=== PATIENT | male | born 1955 ===

== ENCOUNTER 2018-05-08 20:19 | Inpatient (IN) | payer MEDICAID, OTHER ==
--- NOTE | 2018-05-08 21:36 | ED PDOC ---
Arrival/HPI - General Time Seen by Provider: 05/08/18 21:16 Historian: Superintendent Recreation - History of Present Illness Narrative History of Present Illness (Text): 05/08/18 21:37 62 M with no significant past medical history presents with cc of pain in lower chest wall and epigastric area x2hrs radiating to the upper back and neck. A media services specialist was used with patient's permission. Per electrician outside, patient cc presented s/p a meal consisting of cooked shrimp, tomatoes and cucumbers earlier today. Patient attempted to vomit the food out but failed to. Patient also reports feeling nausea. Patient denies any fevers, chills, headache, dizziness, shortness of breath, dyspnea on exertion, cough, diarrhea, or any other complaint. Time/Duration: 1-3 hours Symptom Onset: Sudden Symptom Course: Unchanged Activities at Onset: Light Context: Home Past Medical History - Provider Review Nursing Documentation Reviewed: Yes Family/Social History - Physician Review Nursing Documentation Reviewed: Yes Family/Social History: No Known Family HX Allergies/Home Meds Allergies/Adverse Reactions: Allergies No Known Allergies Allergy (Verified 05/09/18 12:27) Home Medications: Home Meds Medication Instructions Recorded Confirmed Digoxin [Lanoxin] 125 mcg PO DAILY 05/09/18 05/09/18 Furosemide [Lasix] 20 mg PO DAILY 05/09/18 05/09/18 Review of Systems - Physician Review All systems were reviewed & negative as marked: Yes - Review of Systems Constitutional: Normal Eyes: Normal ENT: Normal Respiratory: Normal Cardiovascular: Chest Pain Gastrointestinal: Abdominal Pain, Nausea. absent: Diarrhea, Vomiting Genitourinary Male: Normal Musculoskeletal: Back Pain, Neck Pain Skin: Normal Neurological: Normal Endocrine: Normal Hemo/Lymphatic: Normal Psychiatric: Normal Physical Exam - Physical Exam Narrative Physical Exam (Text): 05/08/18 21:47 Gen: VS reviewed, alert, well developed, well nourished, nontoxic, mild distress Eye: EOMI, PERRL Neck: no JVD, supple, no adenopathy CV: regular rate, regular rhythm, Systolic ejection murmur Pulm: no distress, clear to auscultation, no wheeze, no rhonchi, breath sounds equal, no rales Abd: soft, mild epigastric tenderness, no guarding, no rebound, no rigidity Ext: no edema Skin: good color, no rash, no cyanosis Psych: responds appropriately to questions, normal affect Neuro: oriented x3, CN2-12 intact grossly, motor intact, sensation intact Vital Signs Reviewed: Yes Vital Signs Temp Pulse Resp BP Pulse Ox 05/08/18 20:25 98.4 F 85 16 146/92 H 99 Temperature: Afebrile Blood Pressure: Normal Pulse: Regular Respiratory Rate: Normal Appearance: Positive for: Well-Appearing, Non-Toxic, Comfortable Pain Distress: Mild Mental Status: Positive for: Alert and Oriented X 3 Medical Decision Making ED Course and Treatment: 05/08/18 22:13 62 M with presents with cc of pain in lower chest wall and epigastric area radiating to the upper back and neck. Symptoms above and below diaphragm. -- CTA to rule out aortic dissection Progress Notes: 05/09/18 01:[address] lockett to the hospitalist service. patient to be admitted for chest pain rule out acs. patient also noted to have a coronary calcification and other incidental Ct findings. medical support specialist is also aware of admit. the gallbladder is distended but LFT's are wnl. case discussed with surgical technology instructor and it is agreed that routine Us of the GB can be deferred until the AM. routine consult to dr. keith. 05/09/18 01:53 - RAD Interpretation Narrative RAD Interpretations (Text): 05/09/18 01:30 CTA Chest, Abdomen and Pelvis with Intravenous Contrast: 1. The thoracic and abdominal aorta demonstrate no evidence for aneurysm or dissection. 2. There is mild mediastinal lymphadenopathy, with the subcarinal node measuring 11 mm in short axis dimension on series 3, image 55. 3. The heart is moderately enlarged. There is coronary artery calcification. 4. Mild interlobular septal thickening in the apices. This is nonspecific can be seen in pulmonary edema. Please correlate clinically. Scattered groundglass opacity in the lungs nonspecific but can be seen in pulmonary edema, vascular or small airways disease. 5. The gallbladder is distended measuring at least 9.0 x 3.5 cm. Please correlate clinically and if indicated this could be further evaluated with right upper quadrant sonogram or HIDA scan. 6. Additional and incidental findings as described above. Radiology Orders: 05/08/18 21:32 ANGIOGRAPHY DISECTION PROTOCOL [CT] Stat Tax Commissioner: Radiologist - EKG Interpretation EKG Interpretation (Text): 05/08/18 20:27 NSR @ 86 bpm, nml qrs, nml axis, no acute sttw abn. Interpreted by ED Physician: Yes Type: 12 lead EKG - PA / FRAUD PREVENTION ANALYST / Resident Statement MD/DO has reviewed & agrees with the documentation as recorded. - Scribe Statement The provider has reviewed the documentation as recorded by the Leopoldoibjohnathan Ayers All medical record entries made by the Leopoldoibjohnathan were at my direction and personally dictated by me. I have reviewed the chart and agree that the record accurately reflects my personal performance of the history, physical exam, medical decision making, and the department course for this patient. I have also personally directed, reviewed, and agree with the discharge instructions and disposition. Disposition/Present on Arrival - Present on Arrival Any Indicators Present on Arrival: No - Disposition Have Diagnosis and Disposition been Completed?: Yes Diagnosis: Chest pain, Gallbladder dilatation Disposition: HOSPITALIZED Disposition Time: 01:54 Patient Plan: Observation Patient Problems: Current Active Problems Problem Status Onset Chest pain Acute Gallbladder dilatation Acute Condition: STABLE
[2018-05-08 21:50] LABS: BASO # 0.04 K/mm3 (0.0-2.0); BASO % 0.5 % (0.0-3.0); EOS # 0.1 (0.0-0.7); EOS % 0.6 % (1.5-5.0); LYMPH # 1.2 (1.2-3.4); LYMPH % 14.5 % (22.0-35.0); MEAN CELL VOLUME 78.8 fl (80.0-105.0); MEAN CORPUSCULAR HEMOGLOBIN 25.9 pg (25.0-35.0); MEAN CORPUSCULAR HGB CONC 32.9 g/dl (31.0-37.0); MEAN PLATELET VOLUME 9.6 fl (7.0-11.0); MONO # 0.3 (0.1-0.6); MONO % 3.2 % (1.0-6.0); RBC 4.24 10^6/uL (3.5-6.1); RED CELL DISTRIBUTION WIDTH 18.2 % (11.5-14.5); WHITE BLOOD COUNT 8.2 10^3/uL (4.5-11.0)
[2018-05-08 21:59] LABS: INR 1.08; PARTIAL THROMBOPLASTIN TIME 30.1 Seconds (26.9-38.3)
[2018-05-08 22:08] LABS: ALB/GLOB RATIO 1.2 (1.1-1.8); ALBUMIN 4.2 g/dL (3.0-4.8); ALT/SGPT 36 U/L (7-56); AST/SGOT 45 U/L (17-59); BLOOD UREA NITROGEN 15 mg/dL (7-21); GFR NON-AFRICAN AMERICAN > 60; LIPASE 240 U/L (23-300)
[2018-05-08 22:20] LABS: TROPONIN I 0.02 ng/mL
--- NOTE | 2018-05-09 02:03 | CP.PCM.HP ---
<Edith Desai - Last Filed: 05/09/18 02:58> History of Present Illness - History of Present Illness History of Present Illness: Resident History & Physical for Hospitalist Service Patient is a 62 year old Palestinian speaking male with no significant past medical history presenting with chief complaint of abdominal pain that began earlier this evening. Pain is intermittent and sharp with radiation to the back. Patient denies eating anything unusual and states this has never happened to him before. Patient also admits to nausea but no vomiting. Denies fevers, chills, chest pain, shortness of breath, diarrhea, dysuria. PMH: none PSH: none SHx: denies tobacco or illicit drug use, occasional alcohol FHx: noncontributory Allergies: NKDA Present on Admission - Present on Admission Any Indicators Present on Admission: No Review of Systems - Review of Systems All systems: reviewed and no additional remarkable complaints except (as stated in HPI) Past Patient History - Past Social History Smoking Status: Never Smoked - PSYCHIATRIC Hx Substance Use: No - SURGICAL HISTORY Hx Surgeries: No - ANESTHESIA Hx Anesthesia: No Hx Anesthesia Reactions: No Hx Malignant Hyperthermia: No Meds Allergies/Adverse Reactions: Allergies Allergy/AdvReac Type Severity Reaction Status Date / Time No Known Allergies Allergy Verified 05/09/18 12:27 Physical Exam - Constitutional Appears: Non-toxic, No Acute Distress - Head Exam Head Exam: ATRAUMATIC, NORMOCEPHALIC - Eye Exam Eye Exam: EOMI, Normal appearance, PERRL - ENT Exam ENT Exam: Mucous Membranes Moist - Respiratory Exam Respiratory Exam: Clear to Auscultation Bilateral, NORMAL BREATHING PATTERN. absent: Rales, Rhonchi, Wheezes, Respiratory Distress - Cardiovascular Exam Cardiovascular Exam: REGULAR RHYTHM, +S1, +S2, Systolic Murmur - GI/Abdominal Exam GI & Abdominal Exam: Normal Bowel Sounds, Soft. absent: Distended, Firm, Guarding, Rebound, Rigid, Tenderness - Extremities Exam Extremities exam: Positive for: normal capillary refill, pedal pulses present. Negative for: calf tenderness - Neurological Exam Neurological exam: Alert, CN II-XII Intact, Oriented x3 - Psychiatric Exam Psychiatric exam: Normal Affect, Normal Mood - Skin Skin Exam: Dry, Intact, Normal Color Results - Vital Signs Recent Vital Signs: Last Vital Signs Temp 98.4 F 05/08/18 20:25 Pulse 76 05/09/18 01:36 Resp 16 05/09/18 01:36 BP 135/79 05/09/18 01:36 Pulse Ox 98 05/09/18 01:36 - Labs Result Diagrams: 05/08/18 21:05 05/08/18 21:05 Labs: Laboratory Results - last 24 hr 05/08/18 05/08/18 05/08/18 21:43 21:43 21:43 WBC 8.2 RBC 4.24 Hgb 11.0 L Hct 33.4 L MCV 78.8 L MCH 25.9 MCHC 32.9 RDW 18.2 H Plt Count 196 MPV 9.6 Neut % (Auto) 81.2 H Lymph % (Auto) 14.5 L [place] % (Auto) 3.2 Eos % (Auto) 0.6 L Baso % (Auto) 0.5 Lymph # (Auto) 1.2 [place] # (Auto) 0.3 Eos # (Auto) 0.1 Baso # (Auto) 0.04 Absolute Neuts (auto) 6.65 H PT 12.0 INR 1.08 APTT 30.1 Sodium 142 Potassium 3.5 L Chloride 102 Carbon Dioxide 29 Anion Gap 14 BUN 15 Creatinine 1.0 Est GFR ( Amer) > 60 Est GFR (Non-Af Amer) > 60 Random Glucose 110 Calcium 9.0 Total Bilirubin 0.7 AST 45 ALT 36 Alkaline Phosphatase 71 Troponin I 0.02 Total Protein 7.6 Albumin 4.2 Globulin 3.4 Albumin/Globulin Ratio 1.2 Lipase 240 Assessment & Plan - Assessment and Plan (Free Text) Assessment: Patient is a 62 year old Palestinian speaking male with no significant past medical history presenting with chief complaint of abdominal pain Plan: Abdominal pain - NPO - Protonix - Abdominal ultrasound - Surgery consulted - CT angiography shows no evidence for aneurysm or dissection, distended gallbladder Anemia - iron studies - continue to monitor Hypokalemia - monitor and replete PPX - Heparin SC, Protonix Case reviewed with Dr. Jeremi Desai PGY-1 <Mode Blood - Last Filed: 05/09/18 19:32> Results - Vital Signs Recent Vital Signs: Last Vital Signs Temp 98.9 F 05/09/18 16:53 Pulse 83 05/09/18 16:53 Resp 18 05/09/18 16:53 BP 137/78 05/09/18 16:53 Pulse Ox 98 05/09/18 16:53 - Labs Result Diagrams: 05/08/18 21:05 05/08/18 21:05 Labs: Laboratory Results - last 24 hr 05/08/18 05/08/18 05/08/18 21:05 21:05 21:05 WBC 8.2 RBC 4.24 Hgb 11.0 L Hct 33.4 L MCV 78.8 L MCH 25.9 MCHC 32.9 RDW 18.2 H Plt Count 196 MPV 9.6 Neut % (Auto) 81.2 H Lymph % (Auto) 14.5 L [place] % (Auto) 3.2 Eos % (Auto) 0.6 L Baso % (Auto) 0.5 Lymph # (Auto) 1.2 [place] # (Auto) 0.3 Eos # (Auto) 0.1 Baso # (Auto) 0.04 Absolute Neuts (auto) 6.65 H Retic Count PT 12.0 INR 1.08 APTT 30.1 Sodium 142 Potassium 3.5 L Chloride 102 Carbon Dioxide 29 Anion Gap 14 BUN 15 Creatinine 1.0 Est GFR ( Amer) > 60 Est GFR (Non-Af Amer) > 60 Random Glucose 110 Hemoglobin A1c Calcium 9.0 Iron TIBC % Saturation Ferritin Total Bilirubin 0.7 AST 45 ALT 36 Alkaline Phosphatase 71 Lactate Dehydrogenase Total Creatine Kinase Troponin I 0.02 Total Protein 7.6 Albumin 4.2 Globulin 3.4 Albumin/Globulin Ratio 1.2 Triglycerides Cholesterol LDL Cholesterol Direct HDL Cholesterol Lipase 240 TSH 3rd Generation Digoxin 05/08/18 05/08/18 05/09/18 21:05 21:05 05:55 WBC RBC Hgb Hct MCV MCH MCHC RDW Plt Count MPV Neut % (Auto) Lymph % (Auto) [place] % (Auto) Eos % (Auto) Baso % (Auto) Lymph # (Auto) [place] # (Auto) Eos # (Auto) Baso # (Auto) Absolute Neuts (auto) Retic Count PT INR APTT Sodium Potassium Chloride Carbon Dioxide Anion Gap BUN Creatinine Est GFR ( Amer) Est GFR (Non-Af Amer) Random Glucose Hemoglobin A1c 5.4 Calcium Iron TIBC % Saturation Ferritin 16.6 Total Bilirubin AST ALT Alkaline Phosphatase Lactate Dehydrogenase 544 Total Creatine Kinase 175 Troponin I 0.02 Total Protein Albumin Globulin Albumin/Globulin Ratio Triglycerides 63 Cholesterol 160 LDL Cholesterol Direct 95 HDL Cholesterol 49 Lipase TSH 3rd Generation 2.84 Digoxin 05/09/18 05/09/18 05/09/18 05:55 05:55 05:55 WBC RBC Hgb Hct MCV MCH MCHC RDW Plt Count MPV Neut % (Auto) Lymph % (Auto) [place] % (Auto) Eos % (Auto) Baso % (Auto) Lymph # (Auto) [place] # (Auto) Eos # (Auto) Baso # (Auto) Absolute Neuts (auto) Retic Count 1.62 H PT INR APTT Sodium Potassium Chloride Carbon Dioxide Anion Gap BUN Creatinine Est GFR ( Amer) Est GFR (Non-Af Amer) Random Glucose Hemoglobin A1c Calcium Iron 83 TIBC 414 % Saturation 20 Ferritin Total Bilirubin AST ALT Alkaline Phosphatase Lactate Dehydrogenase Total Creatine Kinase Troponin I Total Protein Albumin Globulin Albumin/Globulin Ratio Triglycerides Cholesterol LDL Cholesterol Direct HDL Cholesterol Lipase TSH 3rd Generation Digoxin < 0.4 L 05/09/18 11:10 WBC RBC Hgb Hct MCV MCH MCHC RDW Plt Count MPV Neut % (Auto) Lymph % (Auto) [place] % (Auto) Eos % (Auto) Baso % (Auto) Lymph # (Auto) [place] # (Auto) Eos # (Auto) Baso # (Auto) Absolute Neuts (auto) Retic Count PT INR APTT Sodium Potassium Chloride Carbon Dioxide Anion Gap BUN Creatinine Est GFR ( Amer) Est GFR (Non-Af Amer) Random Glucose Hemoglobin A1c Calcium Iron TIBC % Saturation Ferritin Total Bilirubin AST ALT Alkaline Phosphatase Lactate Dehydrogenase 515 Total Creatine Kinase 170 Troponin I 0.03 D Total Protein Albumin Globulin Albumin/Globulin Ratio Triglycerides Cholesterol LDL Cholesterol Direct HDL Cholesterol Lipase TSH 3rd Generation Digoxin Attending/Attestation - Attestation I have personally seen and examined this patient.: Yes I have fully participated in the care of the patient.: Yes I have reviewed all pertinent clinical information: Yes Notes (Text): 05/09/18 19:31 seen and examined. Discussed with resident. Exam is benign. Abdominal pain resolved by time seen. A&P as above.
[2018-05-09] MEDS ORDERED: Potassium Chloride 20 mEq ER Tab PO STA (02:57)
[2018-05-09] MEDS: Pantoprazole 40 mg EC Tab PO SCH (06:09)
[2018-05-09 06:37] LABS: IRON 83 ug/dL (45-180)
[2018-05-09 06:47] LABS: % IRON SATURATION 20 % (20-55); TOTAL IRON BINDING CAPACITY 414 ug/dL (261-462)
[2018-05-09 06:49] LABS: TROPONIN I 0.02 ng/mL
--- NOTE | 2018-05-09 08:29 | CP.PCM.CON ---
History of Present Illness - History of Present Illness History of Present Illness: General Surgery consult note for Dr. Buckley Patient is a 62 yr old male with no PMH who presents with epigastric abdominal pain radiating to the back x 8-10 hours. Patient endorses associated nausea. Patient denies f/c, n/v, SOB, chest pain, and any similar episodes in the past. Patient additionally denies any stool changes. He does endorse eating a spicy meal last night 20-30 min before the pain began. Surgery was consulted for evaluation of possible biliary etiology of pain, US ordered PMH: none PSH: none SHx: denies tobacco or illicit drug use, occasional alcohol FHx: noncontributory Allergies: NKDA PMD: none Review of Systems - Review of Systems All systems: reviewed and no additional remarkable complaints except (as per HPI) Past Patient History - Past Social History Smoking Status: Never Smoked - PSYCHIATRIC Hx Substance Use: No - SURGICAL HISTORY Hx Surgeries: No - ANESTHESIA Hx Anesthesia: No Hx Anesthesia Reactions: No Hx Malignant Hyperthermia: No Meds Allergies/Adverse Reactions: Allergies Allergy/AdvReac Type Severity Reaction Status Date / Time No Known Allergies Allergy Verified 05/09/18 12:27 - Medications Medications: Current Medications Furosemide (Lasix) 20 mg PO DAILY [facility] Heparin Sodium (Porcine) (Heparin) 5,000 units SC Q8 [facility]; Protocol Last Admin: 05/09/18 06:09 Dose: 5,000 units Pantoprazole Sodium (Protonix Ec Tab) 40 mg PO 0600 [place] Last Admin: 05/09/18 06:09 Dose: 40 mg Physical Exam - Constitutional Appears: Well, Non-toxic, No Acute Distress - Head Exam Head Exam: ATRAUMATIC - Eye Exam Eye Exam: EOMI - ENT Exam ENT Exam: Mucous Membranes Moist - Respiratory Exam Respiratory Exam: NORMAL BREATHING PATTERN - Cardiovascular Exam Cardiovascular Exam: REGULAR RHYTHM - GI/Abdominal Exam GI & Abdominal Exam: Soft. absent: Distended, Firm, Guarding, Tenderness Additional comments: negative Ceballos's sign - Extremities Exam Extremities exam: Positive for: pedal pulses present. Negative for: calf tenderness, pedal edema - Neurological Exam Neurological exam: Alert, Oriented x3 - Psychiatric Exam Psychiatric exam: Normal Affect, Normal Mood - Skin Skin Exam: Dry, Intact, Normal Color, Warm Results - Vital Signs Recent Vital Signs: Last Vital Signs Temp 98.4 F 05/08/18 20:25 Pulse 81 05/09/18 08:16 Resp 16 05/09/18 08:16 BP 141/86 05/09/18 08:16 Pulse Ox 98 05/09/18 08:16 - Labs Result Diagrams: 05/08/18 21:05 05/08/18 21:05 Labs: Laboratory Results - last 24 hr 05/08/18 05/08/18 05/08/18 21:05 21:05 21:05 WBC 8.2 RBC 4.24 Hgb 11.0 L Hct 33.4 L MCV 78.8 L MCH 25.9 MCHC 32.9 RDW 18.2 H Plt Count 196 MPV 9.6 Neut % (Auto) 81.2 H Lymph % (Auto) 14.5 L [place] % (Auto) 3.2 Eos % (Auto) 0.6 L Baso % (Auto) 0.5 Lymph # (Auto) 1.2 [place] # (Auto) 0.3 Eos # (Auto) 0.1 Baso # (Auto) 0.04 Absolute Neuts (auto) 6.65 H Retic Count PT 12.0 INR 1.08 APTT 30.1 Sodium 142 Potassium 3.5 L Chloride 102 Carbon Dioxide 29 Anion Gap 14 BUN 15 Creatinine 1.0 Est GFR ( Amer) > 60 Est GFR (Non-Af Amer) > 60 Random Glucose 110 Calcium 9.0 Iron TIBC % Saturation Total Bilirubin 0.7 AST 45 ALT 36 Alkaline Phosphatase 71 Lactate Dehydrogenase Total Creatine Kinase Troponin I 0.02 Total Protein 7.6 Albumin 4.2 Globulin 3.4 Albumin/Globulin Ratio 1.2 Triglycerides Cholesterol LDL Cholesterol Direct HDL Cholesterol Lipase 240 TSH 3rd Generation 05/08/18 05/09/18 05/09/18 21:05 05:55 05:55 WBC RBC Hgb Hct MCV MCH MCHC RDW Plt Count MPV Neut % (Auto) Lymph % (Auto) [place] % (Auto) Eos % (Auto) Baso % (Auto) Lymph # (Auto) [place] # (Auto) Eos # (Auto) Baso # (Auto) Absolute Neuts (auto) Retic Count 1.62 H PT INR APTT Sodium Potassium Chloride Carbon Dioxide Anion Gap BUN Creatinine Est GFR ( Amer) Est GFR (Non-Af Amer) Random Glucose Calcium Iron TIBC % Saturation Total Bilirubin AST ALT Alkaline Phosphatase Lactate Dehydrogenase 544 Total Creatine Kinase 175 Troponin I 0.02 Total Protein Albumin Globulin Albumin/Globulin Ratio Triglycerides 63 Cholesterol 160 LDL Cholesterol Direct 95 HDL Cholesterol 49 Lipase TSH 3rd Generation 2.84 05/09/18 05:55 WBC RBC Hgb Hct MCV MCH MCHC RDW Plt Count MPV Neut % (Auto) Lymph % (Auto) [place] % (Auto) Eos % (Auto) Baso % (Auto) Lymph # (Auto) [place] # (Auto) Eos # (Auto) Baso # (Auto) Absolute Neuts (auto) Retic Count PT INR APTT Sodium Potassium Chloride Carbon Dioxide Anion Gap BUN Creatinine Est GFR ( Amer) Est GFR (Non-Af Amer) Random Glucose Calcium Iron 83 TIBC 414 % Saturation 20 Total Bilirubin AST ALT Alkaline Phosphatase Lactate Dehydrogenase Total Creatine Kinase Troponin I Total Protein Albumin Globulin Albumin/Globulin Ratio Triglycerides Cholesterol LDL Cholesterol Direct HDL Cholesterol Lipase TSH 3rd Generation Assessment & Plan - Assessment and Plan (Free Text) Assessment: 62 yr old male with no PMH and incidental finding of mildly distended gallbladder on CT scan, no evidence of Gallbladder pathology on US Plan: - patient is currently asymptomatic - ADAT - Consider GERD/ gastritis type etiology of symptoms - no acute surgical intervention at this time - will discuss with Dr. Marcio Molina, PGY 1 - Date & Time Date: 05/09/18 Time: 02:15
--- NOTE | 2018-05-09 10:12 | CT ---
PROCEDURE: CT Angiography Chest, Abdomen and Pelvis with and without intravenous contrast HISTORY: dissection protocol COMPARISON: None. TECHNIQUE: Contiguous axial images of the chest, abdomen and pelvis were obtained in the phase of aortic enhancement. A noncontrast enhanced CT of the chest was also obtained to evaluate for possible intramural thrombus. Coronal and sagittal reformats were generated. IV dose administered: Radiation dose: Total exam DLP = 925.42 mGy-cm. This CT exam was performed using one or more of the following dose reduction techniques: Automated exposure control, adjustment of the mA and/or kV according to patient size, and/or use of iterative reconstruction technique. FINDINGS: CT ANGIOGRAPHY OF THE CHEST WITH & WITHOUT CONTRAST: AORTA (CHEST AND ABDOMEN): The thoracic and abdominal aorta are unremarkable, without aneurysm, dissection or rupture. No intramural thrombus identified in the thoracic aorta on the non-contrast ct of the chest. The celiac axis, superior mesenteric artery, inferior mesenteric artery and the renal arteries are widely patent. The pelvic arteries are unremarkable. LUNGS: Diffuse mild bilateral ground-glass density possibly representing underlying pulmonary edema, vascular abnormality or small airways disease. MEDIASTINUM: Unremarkable. Normal caliber aorta and pulmonary arterial trunk. No aortic dissection. Cardiomegaly and coronary artery calcification. LYMPH NODES: Mild diffuse mediastinal lymphadenopathy measuring up to 11 millimeters in the subcarinal region, nonspecific. PLEURA: Unremarkable. No pneumothorax. No pleural fluid. BONES: Unremarkable. OTHER FINDINGS: None. CT ANGIOGRAPHY OF THE ABDOMEN AND PELVIS WITH CONTRAST: LIVER: Unremarkable. No gross lesion or ductal dilatation. GALLBLADDER AND BILE DUCTS: Unremarkable. PANCREAS: Unremarkable. No gross lesion or ductal dilatation. SPLEEN: Unremarkable. ADRENALS: Unremarkable. No mass. KIDNEYS AND URETERS: Unremarkable. No hydronephrosis. No solid mass. VASCULATURE: Unremarkable. No aortic aneurysm. No aortic atherosclerotic calcification or mural plaque present. STOMACH AND BOWEL: Unremarkable. No obstruction. No gross mural thickening. APPENDIX: Normal appendix. PERITONEUM: Unremarkable. No free fluid. No free air. LYMPH NODES: Unremarkable. No enlarged lymph nodes. BLADDER: Unremarkable. REPRODUCTIVE: Unremarkable. BONES: No acute fracture. OTHER FINDINGS: None. IMPRESSION: Diffuse mild bilateral ground-glass density possibly representing underlying pulmonary edema, vascular abnormality or small airways disease. Cardiomegaly Mild diffuse mediastinal lymphadenopathy measuring up to 11 millimeters in the subcarinal region, nonspecific.
--- NOTE | 2018-05-09 11:34 | US ---
Date of service: 05/09/2018 HISTORY: abd pain COMPARISON: None. TECHNIQUE: Sonographic evaluation of the abdomen. FINDINGS: LIVER: Measures cm. Normal echogenicity of the liver parenchyma. No mass. No intrahepatic bile duct dilatation. GALLBLADDER: 4 millimeter gallbladder wall thickening with questionable minimal pericholecystic fluid. No gallstones. COMMON BILE DUCT: Measures mm. No stones. No dilatation. PANCREAS: Unremarkable as visualized. No mass. No ductal dilatation. RIGHT KIDNEY: Measures cm. Normal echogenicity. No calculus, mass, or hydronephrosis. LEFT KIDNEY: Measures cm. Normal echogenicity. No calculus, mass, or hydronephrosis. SPLEEN: Normal in size and contour. No mass. AORTA: No aneurysmal dilatation. IVC: Unremarkable. OTHER FINDINGS: None. IMPRESSION: 4 millimeter gallbladder wall thickening with questionable minimal pericholecystic fluid. No gallstones.
[2018-05-09 11:47] LABS: TROPONIN I 0.03 ng/mL
[2018-05-09 12:50] LABS: FERRITIN 16.6 ng/mL
[2018-05-09] MEDS ORDERED: Influenza Vaccine 60 mcg/0.5 mL SYR (4YR UP) IM ONE (15:52)
[2018-05-09] MEDS ORDERED: Pneumococcal 23-Valent Vaccine IM ONE (15:52)
[2018-05-09 16:02] VITALS: BMI 31.9
--- NOTE | 2018-05-09 16:33 | CARD ---
APPROVED REPORT Date of service: 05/09/2018 EXAM: Two-dimensional and M-mode echocardiogram with Doppler and color Doppler. INDICATION systolic murmur 2D DIMENSIONS Left Atrium (2D)5.6 (1.6-4.0cm)IVSd1.6 (0.7-1.1cm) LVDd5.4 (3.9-5.9cm)PWd1.4 (0.7-1.1cm) LVDs3.7 (2.5-4.0cm)FS (%) 31.3 % LVEF (%)58.7 (>50%) M-Mode DIMENSIONS Aortic Root2.40 (2.2-3.7cm)Aortic Cusp Exc.1.70 (1.5-2.0cm) Mitral Valve E/A ratio0.0 TDI E/Lateral E'0.0E/Medial E'0.0 Tricuspid Valve TR Peak [id number] [id number] Peak Gr.30mmHg [id number] LEFT VENTRICLE The left ventricle is normal size. There is mild to moderate concentric left ventricular hypertrophy. The left ventricular function is normal. The left ventricular ejection fraction is within the normal range. There is normal LV segmental wall motion. The left ventricular diastolic function is normal. RIGHT VENTRICLE The right ventricle is borderline dilated. There is normal right ventricular wall thickness. Systolic function is mildly reduced. ATRIA The left atrium is moderately dilated. The right atrium is mildly dilated. There is a small membranous type atrial septal defect with Left to Right Shunt AORTIC VALVE The aortic valve is normal in structure. No aortic regurgitation is present. There is no aortic valvular stenosis. MITRAL VALVE Mitral regurgitation is severe. There is a severe prolapsed posterior mitral valve leaflet.Mitral regurgitation is severe. A vegetation of the mitral valve cannot be excluded. TRICUSPID VALVE The tricuspid valve is normal in structure. There is mild tricuspid regurgitation. There is mild pulmonary hypertension. PULMONIC VALVE The pulmonary valve is normal in structure. There is mild pulmonic valvular regurgitation. GREAT VESSELS The aortic root is normal in size. The IVC is normal in size and collapses >50% with inspiration. <Conclusion> There is mild to moderate concentric left ventricular hypertrophy. The left ventricular function is normal. The left ventricular ejection fraction is within the normal range. There is normal LV segmental wall motion. There is a severe prolapsed posterior mitral valve leaflet.Mitral regurgitation is severe. A vegetation of the mitral valve cannot be excluded. There is mild tricuspid regurgitation. There is mild pulmonary hypertension. There is a small membranous type atrial septal defect with Left to Right Shunt
--- NOTE | 2018-05-09 17:00 | CARD ---
APPROVED REPORT Date of service: 05/08/2018 EKG Measurement Heart [id number] <Conclusion> Normal sinus rhythm Nonspecific ST and T wave abnormality Prolonged QT Abnormal ECG
[2018-05-10] MEDS: Pantoprazole 40 mg EC Tab PO SCH (06:00)
[2018-05-10 06:58] LABS: BASO # 0.08 K/mm3 (0.0-2.0); BASO % 1.1 % (0.0-3.0); EOS # 0.2 (0.0-0.7); EOS % 3.3 % (1.5-5.0); HEMOGLOBIN 11.3 g/dL (14.0-18.0); LYMPH # 2.2 (1.2-3.4); LYMPH % 30.3 % (22.0-35.0); MEAN CELL VOLUME 79.7 fl (80.0-105.0); MEAN CORPUSCULAR HEMOGLOBIN 25.2 pg (25.0-35.0); MEAN CORPUSCULAR HGB CONC 31.7 g/dl (31.0-37.0); MEAN PLATELET VOLUME 9.5 fl (7.0-11.0); MONO # 0.6 (0.1-0.6); MONO % 7.9 % (1.0-6.0); RBC 4.48 10^6/uL (3.5-6.1); RED CELL DISTRIBUTION WIDTH 18.3 % (11.5-14.5); WHITE BLOOD COUNT 7.3 10^3/uL (4.5-11.0)
[2018-05-10 07:09] LABS: ALBUMIN 3.7 g/dL (3.0-4.8); ALT/SGPT 26 U/L (7-56); AST/SGOT 40 U/L (17-59); BLOOD UREA NITROGEN 21 mg/dL (7-21); CALCIUM 8.8 mg/dL (8.4-10.5); GFR NON-AFRICAN AMERICAN > 60
--- NOTE | 2018-05-10 13:49 | CP.PCM.PN ---
<Stefany Varela - Last Filed: 05/10/18 17:18> Subjective - Date & Time of Evaluation Date of Evaluation: 05/10/18 Time of Evaluation: 17:18 - Subjective Subjective: Stefany Varela, PGY1 Medicine Progress Note: Pt was seen and examined this AM at bedside. Pt stated that he has no acute complaints at this time and that he is feeling much better than he did upon admission. Pt is no longer nauseous and is tolerating his diet well. Pt continues to deny fevers, chills, headaches, lightheadedness, chest pain, palpitations, SOB, cough, abd pain, n/v, c/d or dysuria. Objective - Vital Signs/Intake and Output Vital Signs (last 24 hours): Temp Pulse Resp BP Pulse Ox 97.6 F 64 20 122/72 98 05/10/18 06:00 05/10/18 06:00 05/10/18 06:00 05/10/18 11:00 05/10/18 06:00 Intake and Output: 05/10/18 05/10/18 06:59 18:59 Intake Total 580 Balance 580 - Medications Medications: Current Medications Furosemide (Lasix) 20 mg PO DAILY [facility] Last Admin: 05/10/18 11:00 Dose: 20 mg Heparin Sodium (Porcine) (Heparin) 5,000 units SC Q8 [facility]; Protocol Last Admin: 05/10/18 06:00 Dose: Not Given Pantoprazole Sodium (Protonix Ec Tab) 40 mg PO 0600 [facility] Last Admin: 05/10/18 06:00 Dose: Not Given - Labs Labs: 05/10/18 06:30 05/10/18 06:30 PT 12.0 SECONDS (9.4-12.5) 05/08/18 21:05 INR 1.08 05/08/18 21:05 APTT 30.1 Seconds (26.9-38.3) 05/08/18 21:05 - Constitutional Appears: Non-toxic, No Acute Distress - Head Exam Head Exam: ATRAUMATIC, NORMOCEPHALIC - Eye Exam Eye Exam: EOMI, Normal appearance, PERRL - ENT Exam ENT Exam: Mucous Membranes Moist - Respiratory Exam Respiratory Exam: Clear to Auscultation Bilateral, NORMAL BREATHING PATTERN. absent: Rales, Rhonchi, Wheezes, Respiratory Distress - Cardiovascular Exam Cardiovascular Exam: REGULAR RHYTHM, +S1, +S2, Systolic Murmur - GI/Abdominal Exam GI & Abdominal Exam: Normal Bowel Sounds, Soft. absent: Distended, Firm, Guarding, Rebound, Rigid, Tenderness - Extremities Exam Extremities exam: Positive for: normal capillary refill, pedal pulses present. Negative for: calf tenderness - Neurological Exam Neurological exam: Alert, CN II-XII Intact, Oriented x3 - Psychiatric Exam Psychiatric exam: Normal Affect, Normal Mood - Skin Skin Exam: Dry, Intact, Normal Color Assessment and Plan - Assessment and Plan (Free Text) Assessment: Patient is a 62 year old Tajik speaking male with no significant past medical history presenting with chief complaint of abdominal pain. Pt states that the pain and nausea have now completely resolved. Plan: Newfound systolic murmur: - Pt had echo done yesterday which showed: ? vegetation on the MV, severe MV prolapse and severe MR - Blood cultures pending - ESR, CRP, Procal - Can start abx if these labs come back (+) - Cardio consulted, recs appreciated Abdominal pain - HHD, tolerating well - Protonix - Abdominal ultrasound - Surgery consulted, no further surgical recs at this time - CT angiography shows no evidence for aneurysm or dissection, distended gallbladder Anemia - iron studies - wnl - continue to monitor Hypokalemia - monitor and replete PPX - Heparin SC, Protonix Case reviewed with Dr. Fercho Varela PGY-1 <Sandra Brantley - Last Filed: 05/11/18 11:06> Objective - Vital Signs/Intake and Output Vital Signs (last 24 hours): Temp Pulse Resp BP Pulse Ox 97.4 F L 76 18 137/87 99 05/11/18 05:42 05/11/18 05:42 05/11/18 05:42 05/11/18 10:31 05/11/18 05:42 Intake and Output: 05/11/18 05/11/18 06:59 18:59 Intake Total 240 Balance 240 - Medications Medications: Current Medications Furosemide (Lasix) 20 mg PO BID [facility] Heparin Sodium (Porcine) (Heparin) 5,000 units SC Q8 [facility]; Protocol Last Admin: 05/11/18 05:05 Dose: 5,000 units Pantoprazole Sodium (Protonix Ec Tab) 40 mg PO 0600 [facility] Last Admin: 05/11/18 05:05 Dose: 40 mg - Labs Labs: 05/10/18 06:30 05/10/18 06:30 PT 12.0 SECONDS (9.4-12.5) 05/08/18 21:05 INR 1.08 05/08/18 21:05 APTT 30.1 Seconds (26.9-38.3) 05/08/18 21:05 Attending/Attestation - Attestation I have personally seen and examined this patient.: Yes I have fully participated in the care of the patient.: Yes I have reviewed all pertinent clinical information, including history, physical exam and plan: Yes Notes (Text): 05/11/18 11:01 Patient was seen and examined with medical practice administrator. 62 yrs old male with PMH of CHF? was admitted with epigastric pain which is resolved. Patient is found to have severe MR, Lung sound are clear, Case was discussed with Cardiology , we will transfer patient to telemetry. Due to questionable vegetation, blood cultures has been drawn.Patient is afebrile, we will check CRP,ESR and Procalcitonin. Management plan was discussed in detail with patient. Education was provided. 05/11/18 11:06
--- NOTE | 2018-05-10 14:02 | RAD ---
Date of service: 05/10/2018 HISTORY: CHF COMPARISON: No prior. TECHNIQUE: Chest PA and lateral FINDINGS: LUNGS: No active pulmonary disease. PLEURA: No significant pleural effusion identified. No pneumothorax apparent. CARDIOVASCULAR: No aortic atherosclerotic calcification present. Mild cardiomegaly no pulmonary vascular congestion. OSSEOUS STRUCTURES: No significant abnormalities. VISUALIZED UPPER ABDOMEN: Normal. OTHER FINDINGS: None. IMPRESSION: No active disease.
--- NOTE | 2018-05-11 03:59 | CON ---
DATE OF SERVICE: 05/10/2018 CARDIOLOGY CONSULTATION REASON FOR CONSULTATION: Severe mitral insufficiency. HISTORY OF PRESENT ILLNESS: The patient is a 62-year-old male from [place], who has no known prior cardiac history, presents because of pain to the lower chest wall and epigastric area following eating shrimp meal. The patient reported nausea and he attempted to vomit. At the time of my evaluation, the patient denies any chest pain and is unaware of any history of heart attack in the past. SOCIAL HISTORY: The patient is a nonsmoker. 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 MEDICATIONS: Subcutaneous heparin 5000 units every 8 hours, Lasix 20 mg p.o. once a day, Protonix 40 mg once a day. PHYSICAL EXAMINATION: GENERAL: The patient is a middle-aged male who does not appear to be in acute distress. VITAL SIGNS: Blood pressure 119/73, heart rate 64, temperature 97.6, respirations 20. HEENT: Normocephalic. CHEST: Clear. HEART: S1 and S2 regular, grade 5/6 holosystolic apical murmur. ABDOMEN: Soft. EXTREMITIES: No edema. LABORATORY DATA: Hemoglobin and hematocrit are 11.3 and 35.7. White count and platelet count are within normal limits. SMA-7 is within normal limits. Lipid profile and TSH level are within normal limits. PT, PTT, and INR are within normal limits. EKG revealed sinus rhythm, nonspecific T-wave abnormality, prolonged QT interval. Echocardiac study revealed mild to moderate concentric LVH with normal ejection fraction, prolapsed posterior mitral valve leaflet with severe mitral insufficiency. Vegetation cannot be ruled out. A small membranous atrial septal defect with [id number] shunt. Abdominal ultrasound, 4 mm gallbladder wall thickening with questionable minimal pericholecystic fluid, no gallstones. Angiography with dissection protocol revealed diffuse mild bilateral ground-glass density, possibly representing underlying pulmonary edema; cardiomegaly; mild diffuse mediastinal lymphadenopathy. ASSESSMENT: 1. Severe mitral valve insufficiency. 2. Small membranous atrial septal defect. 3. Rule out bacterial endocarditis. 4. Consider underlying congestive heart failure. RECOMMENDATIONS: Continue current subcutaneous heparin, oral Lasix, and Protonix. Case was discussed with the Medical team. I did request two sets of blood culture, transferring the patient to telemetry. Obtain chest x-ray, PA and lateral. Arnulfo Rascon MD
[2018-05-11] MEDS: Pantoprazole 40 mg EC Tab PO SCH (05:05)
--- NOTE | 2018-05-11 12:02 | CP.PCM.PN ---
<Jose A Scott - Last Filed: 05/11/18 12:12> Subjective - Date & Time of Evaluation Date of Evaluation: 05/11/18 Time of Evaluation: 12:02 - Subjective Subjective: INTERNAL MEDICINE PROGRESS NOTE Jose A Scott PGY1 Pt seen and examined at bedside this am. No acute events overnight. Pt is tolerating diet, denying 12 point ROS this am. Objective - Vital Signs/Intake and Output Vital Signs (last 24 hours): Temp Pulse Resp BP Pulse Ox 97.4 F L 76 18 137/87 99 05/11/18 05:42 05/11/18 05:42 05/11/18 05:42 05/11/18 10:31 05/11/18 05:42 Intake and Output: 05/11/18 05/11/18 06:59 18:59 Intake Total 240 Balance 240 - Medications Medications: Current Medications Furosemide (Lasix) 20 mg PO BID [facility] Heparin Sodium (Porcine) (Heparin) 5,000 units SC Q8 [facility]; Protocol Last Admin: 05/11/18 05:05 Dose: 5,000 units Pantoprazole Sodium (Protonix Ec Tab) 40 mg PO 0600 [facility] Last Admin: 05/11/18 05:05 Dose: 40 mg - Labs Labs: 05/10/18 06:30 05/10/18 06:30 PT 12.0 SECONDS (9.4-12.5) 05/08/18 21:05 INR 1.08 05/08/18 21:05 APTT 30.1 Seconds (26.9-38.3) 05/08/18 21:05 - Constitutional Appears: Non-toxic, No Acute Distress - Head Exam Head Exam: ATRAUMATIC, NORMOCEPHALIC - Eye Exam Eye Exam: EOMI, Normal appearance, PERRL - ENT Exam ENT Exam: Mucous Membranes Moist - Respiratory Exam Respiratory Exam: Clear to Auscultation Bilateral, NORMAL BREATHING PATTERN. Minimal wheezing. absent: Rales, Rhonchi, Respiratory Distress - Cardiovascular Exam Cardiovascular Exam: REGULAR RHYTHM, +S1, +S2, Systolic Murmur - GI/Abdominal Exam GI & Abdominal Exam: Normal Bowel Sounds, Soft. absent: Distended, Firm, Guar ding, Rebound, Rigid, Tenderness - Extremities Exam Extremities exam: Positive for: normal capillary refill, pedal pulses present. Negative for: calf tenderness, edema - Neurological Exam Neurological exam: Alert, CN II-XII Intact, Oriented x3 - Psychiatric Exam Psychiatric exam: Normal Affect, Normal Mood - Skin Skin Exam: Dry, Intact, Normal Color Assessment and Plan - Assessment and Plan (Free Text) Assessment: Patient is a 62 year old Greek speaking male with no significant past medical history presenting with chief complaint of abdominal pain. Pt states that the pain and nausea have now completely resolved. Plan: Newfound systolic murmur: - Pt had echo done yesterday which showed: ? vegetation on the MV, severe MV prolapse and severe MR - Pt had minimal wheezing today on exam. Will administer stat dose of 20mg Lasix IVP. Will increase daily lasix to 20mg bid - Blood cultures pending - ESR, CRP, Procal: 5/6.7/<0.05 - antibiotics pending final culture results - Cardio consulted, recs appreciated Abdominal pain - HHD, tolerating well - Protonix - Abdominal ultrasound 4mm gallbladder wall thickening with questionable minimal pericholecystic fluid. No gallstones - Surgery consulted, no further surgical recs at this time - CT angiography shows no evidence for aneurysm or dissection, distended gallbladder Anemia - iron studies - wnl - continue to monitor Hypokalemia - monitor and replete PPX - Heparin SC, Protonix Case reviewed with Dr. Fercho Varela PGY-1 <Sandra Brantley - Last Filed: 05/11/18 18:02> Objective - Vital Signs/Intake and Output Vital Signs (last 24 hours): Temp Pulse Resp BP Pulse Ox 97.8 F 64 20 124/78 99 05/11/18 12:00 05/11/18 14:00 05/11/18 12:00 05/11/18 12:00 05/11/18 05:42 Intake and Output: 05/11/18 05/11/18 06:59 18:59 Intake Total 240 Balance 240 - Medications Medications: Current Medications Furosemide (Lasix) 20 mg PO BID [facility] Heparin Sodium (Porcine) (Heparin) 5,000 units SC Q8 [facility]; Protocol Last Admin: 05/11/18 15:41 Dose: 5,000 units Pantoprazole Sodium (Protonix Ec Tab) 40 mg PO 0600 [facility] Last Admin: 05/11/18 05:05 Dose: 40 mg - Labs Labs: 05/10/18 06:30 05/10/18 06:30 PT 12.0 SECONDS (9.4-12.5) 05/08/18 21:05 INR 1.08 05/08/18 21:05 APTT 30.1 Seconds (26.9-38.3) 05/08/18 21:05 Attending/Attestation - Attestation I have personally seen and examined this patient.: Yes I have fully participated in the care of the patient.: Yes I have reviewed all pertinent clinical information, including history, physical exam and plan: Yes Notes (Text): 05/11/18 17:59 Patient was seen and examined with healthcare or medical. 62 yrs old male with PMH of CHF? was admitted with epigastric pain which is resolved. Patient is found to have severe MR, Due to questionable vegetation, blood cultures were drawn which are negative at this time, ESR ,CRP and Procalcitonin level is is normal X rays showed pulmonary congestion, 20 mg IV lasix was given, lasix dose is increased to 20 mG bid. We will follow up cardiology recommendation. Telemetry is unremarkable. Management plan was discussed in detail with patient. Education was provided.
--- NOTE | 2018-05-11 17:36 | PN ---
DATE: 05/11/2018 SUBJECTIVE: The patient denies any chest pain, shortness of breath, or abdominal pain. OBJECTIVE: VITAL SIGNS: Blood pressure 124/78, heart rate 74, temperature 97.8, respirations 20. HEENT: Normocephalic. CHEST: Clear. HEART: S1 and S2 regular. Grade 5/6 holosystolic apical murmur. ABDOMEN: Soft. EXTREMITIES: No edema. LABORATORY DATA: Blood cultures negative after 24 hours. ASSESSMENT: 1. Severe mitral insufficiency. 2. Small membranous atrial septal defect. 3. Rule out bacterial endocarditis. RECOMMENDATIONS: Continue subcutaneous heparin 5000 units every 8 hours, Lasix 20 mg p.o. twice a day, Protonix 40 mg orally once a day. I did review the chest x-ray, which was done yesterday and it revealed significant cardiomegaly with mild CHF. Arnulfo Rascon MD
[2018-05-12] MEDS: Pantoprazole 40 mg EC Tab PO SCH (06:11)
[2018-05-12 08:24] LABS: BASO # 0.05 K/mm3 (0.0-2.0); BASO % 0.7 % (0.0-3.0); EOS # 0.2 (0.0-0.7); EOS % 3.3 % (1.5-5.0); HEMOGLOBIN 11.8 g/dL (14.0-18.0); LYMPH # 1.7 (1.2-3.4); LYMPH % 23.5 % (22.0-35.0); MEAN CELL VOLUME 81.3 fl (80.0-105.0); MEAN CORPUSCULAR HEMOGLOBIN 25.6 pg (25.0-35.0); MEAN CORPUSCULAR HGB CONC 31.5 g/dl (31.0-37.0); MEAN PLATELET VOLUME 9.8 fl (7.0-11.0); MONO # 0.6 (0.1-0.6); MONO % 8.8 % (1.0-6.0); RBC 4.61 10^6/uL (3.5-6.1); RED CELL DISTRIBUTION WIDTH 18.1 % (11.5-14.5); WHITE BLOOD COUNT 7.3 10^3/uL (4.5-11.0)
[2018-05-12 08:37] LABS: ALB/GLOB RATIO 1.1 (1.1-1.8); ALBUMIN 4.2 g/dL (3.0-4.8); ALT/SGPT 35 U/L (7-56); AST/SGOT 56 U/L (17-59); BLOOD UREA NITROGEN 27 mg/dL (7-21); CALCIUM 8.9 mg/dL (8.4-10.5); GFR NON-AFRICAN AMERICAN > 60
--- NOTE | 2018-05-12 11:43 | CP.PCM.PN ---
<Jose A Scott - Last Filed: 05/12/18 12:36> Subjective - Date & Time of Evaluation Date of Evaluation: 05/12/18 Time of Evaluation: 11:31 - Subjective Subjective: INTERNAL MEDICINE PROGRESS NOTE Jose A Munizfaraz PGY1 Pt seen and examined at bedside this am. No acute events overnight. Pt is denying complaints. He reports he hasn't been drinking excessive fluids and is aware of his 1.5L fluid restriction. He is denying 12 point ROS Objective - Vital Signs/Intake and Output Vital Signs (last 24 hours): Temp Pulse Resp BP Pulse Ox 97.7 F 80 18 135/70 100 05/12/18 05:48 05/12/18 05:48 05/12/18 05:48 05/12/18 10:09 05/12/18 05:48 Intake and Output: 05/12/18 05/12/18 06:59 18:59 Intake Total 240 Balance 240 - Medications Medications: Current Medications Furosemide (Lasix) 20 mg PO BID [facility] Last Admin: 05/12/18 10:09 Dose: 20 mg Heparin Sodium (Porcine) (Heparin) 5,000 units SC Q8 [facility]; Protocol Last Admin: 05/12/18 06:11 Dose: 5,000 units Ibuprofen (Motrin Tab) 400 mg PO Q6H PRN PRN Reason: Pain, moderate (4-7) Last Admin: 05/11/18 18:31 Dose: 400 mg Pantoprazole Sodium (Protonix Ec Tab) 40 mg PO 0600 [facility] Last Admin: 05/12/18 06:11 Dose: 40 mg - Labs Labs: 05/12/18 08:10 05/12/18 08:10 PT 12.0 SECONDS (9.4-12.5) 05/08/18 21:05 INR 1.08 05/08/18 21:05 APTT 30.1 Seconds (26.9-38.3) 05/08/18 21:05 - Constitutional Appears: Non-toxic, No Acute Distress - Head Exam Head Exam: ATRAUMATIC, NORMOCEPHALIC - Eye Exam Eye Exam: EOMI, Normal appearance, PERRL - ENT Exam ENT Exam: Mucous Membranes Moist - Respiratory Exam Respiratory Exam: Clear to Auscultation Bilateral, NORMAL BREATHING PATTERN. Minimal wheezing. absent: Rales, Rhonchi, Respiratory Distress - Cardiovascular Exam Cardiovascular Exam: REGULAR RHYTHM, +S1, +S2, Systolic Murmur - GI/Abdominal Exam GI & Abdominal Exam: Normal Bowel Sounds, Soft. absent: Distended, Firm, Guarding, Rebound, Rigid, Tenderness - Extremities Exam Extremities exam: Positive for: normal capillary refill, pedal pulses present. Negative for: calf tenderness, edema - Neurological Exam Neurological exam: Alert, CN II-XII Intact, Oriented x3 - Psychiatric Exam Psychiatric exam: Normal Affect, Normal Mood - Skin Skin Exam: Dry, Intact, Normal Color Assessment and Plan - Assessment and Plan (Free Text) Assessment: 62 year old [place]serratian speaking male with no significant past medical history presenting with chief complaint of epigastric pain which has resolved. Pt's stay was complicated by newly diagnosed mitral regurgitation & vegetation. Plan: Severe Mitral Regurgitation: - Newly diagnosed on physical exam. Pt is asymptomatic. - Echo reveals: Severe prolapse posterior mitral valve leaflet. Severe mitral regurgitation. Elana valve vegetation cannot be excluded. Small membranous type ASD with L to R shunt. LVEF 58.7% - Given echo findings, we have worked up to rule out bacterial endocarditis. Blood cultures have been negative. ESR, CRP, Procal: 5/6.7/<0.05. - No fevers, hx of IVDA or vascular/embolic phenomena noted - Pending cardiology input for possible surgical intervention/valve repair - Monitor BP to minimize afterload which would exacerbate MR - Pt had pulmonary vascular congestion on xray. continue lasix 20mg po bid - continue 1500cc fluid restriction - Monitor I/Os - Cardio consulted, recs appreciated Abdominal pain - Resolved - HHD, tolerating well - Protonix - Abdominal ultrasound 4mm gallbladder wall thickening with questionable minimal pericholecystic fluid. No gallstones - Surgery consulted, no further surgical recs at this time - CT angiography shows no evidence for aneurysm or dissection, distended gallbladder Anemia - iron studies - wnl - continue to monitor Hypokalemia - monitor and replete PPX - Heparin SC, Protonix Case reviewed with Dr. Fercho Scott PGY1 <Sandra Brantley - Last Filed: 05/12/18 13:10> Objective - Vital Signs/Intake and Output Vital Signs (last 24 hours): Temp Pulse Resp BP Pulse Ox 97.7 F 79 18 135/70 100 05/12/18 05:48 05/12/18 10:00 05/12/18 05:48 05/12/18 10:09 05/12/18 05:48 Intake and Output: 05/12/18 05/12/18 06:59 18:59 Intake Total 240 Balance 240 - Medications Medications: Current Medications Furosemide (Lasix) 20 mg PO BID [facility] Last Admin: 05/12/18 10:09 Dose: 20 mg Heparin Sodium (Porcine) (Heparin) 5,000 units SC Q8 [facility]; Protocol Last Admin: 05/12/18 06:11 Dose: 5,000 units Ibuprofen (Motrin Tab) 400 mg PO Q6H PRN PRN Reason: Pain, moderate (4-7) Last Admin: 05/11/18 18:31 Dose: 400 mg Pantoprazole Sodium (Protonix Ec Tab) 40 mg PO 0600 [facility] Last Admin: 05/12/18 06:11 Dose: 40 mg - Labs Labs: 05/12/18 08:10 05/12/18 08:10 PT 12.0 SECONDS (9.4-12.5) 05/08/18 21:05 INR 1.08 05/08/18 21:05 APTT 30.1 Seconds (26.9-38.3) 05/08/18 21:05 Attending/Attestation - Attestation I have personally seen and examined this patient.: Yes I have fully participated in the care of the patient.: Yes I have reviewed all pertinent clinical information, including history, physical exam and plan: Yes Notes (Text): 05/12/18 13:08 Patient was seen and examined with medical assistant secretary. 62 yrs old male with PMH of CHF? was admitted with epigastric pain which is resolved.Patient was found to have Pansystolic Murmur.Echo showed severe MR, Due to questionable vegetation, blood cultures were drawn which are negative at this time, ESR ,CRP and Procalcitonin level is is normal X rays showed pulmonary congestion, on oral lasix.Patient is euvolemic. We will follow up cardiology recommendation. Telemetry is unremarkable for arrhythmia. Management plan was discussed in detail with patient. Education was provided.
--- NOTE | 2018-05-12 22:07 | PN ---
DATE: 05/12/2018 SUBJECTIVE: The patient denies chest pain or shortness of breath at this time. PHYSICAL EXAMINATION: VITAL SIGNS: Blood pressure 115/67, heart rate 80, temperature 97.7, respirations 18. HEENT: Normocephalic. CHEST: Clear. HEART: S1 and S2 regular. Grade 5/6 holosystolic apical murmur. EXTREMITIES: No edema. LABORATORY DATA: Today's hemoglobin and hematocrit are 11.8 and 37.5. White count and platelet count are within normal limits. Today's SMA-7 is within normal limits except for a BUN of 27. ASSESSMENT: 1. Severe mitral insufficiency. 2. Mild pulmonary hypertension. 3. Small membranous atrial septal defect with left to right shunt. RECOMMENDATIONS: Continue subcutaneous heparin 5000 units every 8 hours, Lasix 20 mg twice a day, Protonix 40 mg once a day. Start aspirin at 81 mg daily. Blood culture is negative after 48 hours. Arnulfo Rascon MD
[2018-05-12 23:00] VITALS: O2SAT 99
[2018-05-13] MEDS: Pantoprazole 40 mg EC Tab PO SCH (06:28)
[2018-05-13 09:40] LABS: ALB/GLOB RATIO 1.1 (1.1-1.8); ALBUMIN 4.7 g/dL (3.0-4.8); ALT/SGPT 50 U/L (7-56); AST/SGOT 77 U/L (17-59); BLOOD UREA NITROGEN 22 mg/dL (7-21); CALCIUM 9.6 mg/dL (8.4-10.5); GFR NON-AFRICAN AMERICAN > 60
[2018-05-13 10:05] LABS: HEMOGLOBIN 13.2 g/dL (14.0-18.0); MEAN CELL VOLUME 80.6 fl (80.0-105.0); MEAN CORPUSCULAR HEMOGLOBIN 26.1 pg (25.0-35.0); MEAN CORPUSCULAR HGB CONC 32.4 g/dl (31.0-37.0); MEAN PLATELET VOLUME 9.9 fl (7.0-11.0); RBC 5.05 10^6/uL (3.5-6.1); RED CELL DISTRIBUTION WIDTH 18.1 % (11.5-14.5); WHITE BLOOD COUNT 6.6 10^3/uL (4.5-11.0)
[2018-05-13 12:34] VITALS: BP 163/91; RESP 20; TEMP 98.6
--- NOTE | 2018-05-13 14:23 | CP.PCM.DIS ---
<RigobertoJulio - Last Filed: 05/13/18 14:20> Provider - Provider Date of Admission: 05/10/18 13:55 Attending physician: Ketty Reid MD Primary care physician: NO PRIMARY CARE PROVIDER Consults: 05/09/18 01:56 General Surgery Consult Routine Comment: Consulting Provider: Tunde Buckley Consulting Physician: Tunde Buckley Reason for Consult: distended gallbladder 05/09/18 15:52 Inpatient FAMILY NURSE Core Measures Referral Routine Comment: REFUSED Physician Instructions: Reason For Exam: EVALUATION Transition In Care/Readmission Reduction Routine Comment: REFUSED Physician Instructions: Reason For Exam: EVALUATION 05/10/18 09:18 Cardiology Consult Routine Comment: Consulting Provider: Delfin Stockton Consulting Physician: Delfin Stockton Reason for Consult: severe MR and severe mitral valve prolapse Time Spent in preparation of Discharge (in minutes): 35 Hospital Course - Lab Results Lab Results: Micro Results 05/10/18 11:25 Blood-Venous Blood Culture - Preliminary NO GROWTH AFTER 3 DAYS Most Recent Lab Values WBC 6.6 10^3/uL (4.5-11.0) 05/13/18 09:30 RBC 5.05 10^6/uL (3.5-6.1) 05/13/18 09:30 Hgb 13.2 g/dL (14.0-18.0) L 05/13/18 09:30 Hct 40.7 % (42.0-52.0) L 05/13/18 09:30 MCV 80.6 fl (80.0-105.0) 05/13/18 09:30 MCH 26.1 pg (25.0-35.0) 05/13/18 09:30 MCHC 32.4 g/dl (31.0-37.0) 05/13/18 09:30 RDW 18.1 % (11.5-14.5) H 05/13/18 09:30 Plt Count 213 10^3/uL (120.0-450.0) 05/13/18 09:30 MPV 9.9 fl (7.0-11.0) 05/13/18 09:30 Neut % (Auto) 63.7 % (50.0-68.0) 05/12/18 08:10 Lymph % (Auto) 23.5 % (22.0-35.0) 05/12/18 08:10 Gooding % (Auto) 8.8 % (1.0-6.0) H 05/12/18 08:10 Eos % (Auto) 3.3 % (1.5-5.0) 05/12/18 08:10 Baso % (Auto) 0.7 % (0.0-3.0) 05/12/18 08:10 Lymph # (Auto) 1.7 (1.2-3.4) 05/12/18 08:10 Gooding # (Auto) 0.6 (0.1-0.6) 05/12/18 08:10 Eos # (Auto) 0.2 (0.0-0.7) 05/12/18 08:10 Baso # (Auto) 0.05 K/mm3 (0.0-2.0) 05/12/18 08:10 Absolute Neuts (auto) 4.65 (1.4-6.5) 05/12/18 08:10 ESR 5 mm/hr (0.00-15.0) 05/10/18 13:30 Retic Count 1.62 % (0.5-1.5) H 05/09/18 05:55 PT 12.0 SECONDS (9.4-12.5) 05/08/18 21:05 INR 1.08 05/08/18 21:05 APTT 30.1 Seconds (26.9-38.3) 05/08/18 21:05 Sodium 139 mmol/L (132-148) 05/13/18 09:10 Potassium 4.6 mmol/L (3.6-5.0) 05/13/18 09:10 Chloride 102 mmol/L (98-107) 05/13/18 09:10 Carbon Dioxide 30 mmol/L (21-33) 05/13/18 09:10 Anion Gap 12 (10-20) 05/13/18 09:10 BUN 22 mg/dL (7-21) H 05/13/18 09:10 Creatinine 1.0 mg/dl (0.8-1.5) 05/13/18 09:10 Est GFR ( Amer) > 60 05/13/18 09:10 Est GFR (Non-Af Amer) > 60 05/13/18 09:10 Random Glucose 131 mg/dL (70-110) H 05/13/18 09:10 Hemoglobin A1c 5.4 % (4.2-6.5) 05/08/18 21:05 Calcium 9.6 mg/dL (8.4-10.5) 05/13/18 09:10 Phosphorus 4.2 mg/dL (2.5-4.5) 05/12/18 08:10 Magnesium 2.4 mg/dL (1.7-2.2) H 05/12/18 08:10 Iron 83 ug/dL (45-180) 05/09/18 05:55 TIBC 414 ug/dL (261-462) 05/09/18 05:55 % Saturation 20 % (20-55) 05/09/18 05:55 Ferritin 16.6 ng/mL 05/09/18 05:55 Total Bilirubin 0.6 mg/dL (0.2-1.3) 05/13/18 09:10 AST 77 U/L (17-59) H D 05/13/18 09:10 ALT 50 U/L (7-56) 05/13/18 09:10 Alkaline Phosphatase 70 U/L (38-126) 05/13/18 09:10 Lactate Dehydrogenase 515 U/L (333-699) 05/09/18 11:10 Total Creatine Kinase 170 U/L (35-230) 05/09/18 11:10 Troponin I 0.03 ng/mL D 05/09/18 11:10 C-Reactive Protein 6.70 mg/L (0.0-9.9) 05/10/18 13:30 Total Protein 8.9 g/dL (5.8-8.3) H 05/13/18 09:10 Albumin 4.7 g/dL (3.0-4.8) 05/13/18 09:10 Globulin 4.2 gm/dL 05/13/18 09:10 Albumin/Globulin Ratio 1.1 (1.1-1.8) 05/13/18 09:10 Triglycerides 63 mg/dL (35-160) 05/09/18 05:55 Cholesterol 160 mg/dL (130-200) 05/09/18 05:55 LDL Cholesterol Direct 95 mg/dL (0-129) 05/09/18 05:55 HDL Cholesterol 49 mg/dL (29-60) 05/09/18 05:55 Lipase 240 U/L (23-300) 05/08/18 21:05 Procalcitonin < 0.05 NG/ML (0.19-0.49) L 05/10/18 13:30 TSH 3rd Generation 2.84 mIU/mL (0.46-4.68) 05/08/18 21:05 Digoxin < 0.4 ng/mL (0.8-2.0) L 05/09/18 05:55 - Hospital Course Hospital Course: Julio Franklin, PGY1 Discharge Summary for Dr. Reid Patient is a 62 year old Georgian speaking male with PMHx of CHF who presented to the ED on 05/09 with abdominal pain for one day in duration. Pain was intermittent and sharp with radiation to the back. CT Abdomen was done that showed distended gallbladder with ground glass opacities. Patient also had an abdominal US that showed 4 mm gallbladder wall thickening with no evidence of gallstones. On exam, patient also had a prominent severe mitral regurgitation. Cardiology was placed on consult and patient placed on telemetry. Surgery was also placed on consult for the abdominal pain and gallbladder findings. However, no acute intervention was recommended by surgical team. Cardio recommended an echocardiogram. Echo showed EF 58% with RVSP 40, severe MR, however vegetation can not be ruled out. Pertinent labs include negative procal, negative ESR, negative CRP. Blood Cx were also negative (prelim) since 05/10. 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 During hospital course patient's abdominal pain resolved. He was also placed on aspirin 81mg daily as per cardio recs. He was also explained that the possibility of endocarditis still needs to be ruled out. He still may need to undergo a LUCAS and obtain repeat blood cultures. However, during hospital course patient said that he felt better and would rather follow up with a PMD he has been seeing for the past 2 years. Patient explained that he still has an appointment at the [facility] if he does not follow with a PMD. He was also explained that if he left, he would be signing out against medical advise. After an in-length discussion explaining the risks of signing out against medical advice including infection, worsening cardiac disease, emboli, stroke, disability, and , patient said that he still wants to sign out against medical advice. Patient is AAOx3 and has full decision making capacity. During time of AMA discussion, Georgian saddle and side wire stitcher was used (ID#[id number]). Discharge Exam - Head Exam Head Exam: ATRAUMATIC, NORMAL INSPECTION, NORMOCEPHALIC - Eye Exam Eye Exam: EOMI, Normal appearance Pupil Exam: NORMAL ACCOMODATION - Respiratory Exam Respiratory Exam: absent: Accessory Muscle Use, Chest Wall Tenderness, Rales, Rhonchi, Wheezes, Stridor - Cardiovascular Exam Cardiovascular Exam: RRR, +S1, +S2, Systolic Murmur Additional comments: Severe Mitral regurgitation murmur (Grade 5/6). - GI/Abdominal Exam GI & Abdominal Exam: Normal Bowel Sounds, Soft. absent: Distended, Firm, Guarding, Pulsatile Mass, Rebound, Tenderness - Extremities Exam Extremities exam: normal capillary refill, normal inspection, pedal pulses present - Neurological Exam Neurological exam: Alert, CN II-XII Intact, Normal Gait, Oriented x3 - Psychiatric Exam Psychiatric exam: Normal Affect, Normal Mood - Skin Skin Exam: Dry, Intact, Normal Color, Warm Discharge Plan - Discharge Medications Prescriptions: Furosemide [Lasix] 20 mg PO BID #28 tab - Follow Up Plan Condition: STABLE Disposition: AGAINST MEDICAL ADVICE Additional Instructions: - You are leaving against medical advice. - Please follow up with your Primary Care Doctor. Otherwise, you have an appointment with [facility] on May 20 at 1:30pm. - Please return to the nearest Emergency Department if your symptoms worsen or reoccur. Referrals: Luiza Cheng MD [Medical Doctor] - <Ketty Reid - Last Filed: 05/13/18 15:32> Provider - Provider Date of Admission: 05/10/18 13:55 Attending physician: Ketty Reid MD Primary care physician: NO PRIMARY CARE PROVIDER Consults: 05/09/18 01:56 General Surgery Consult Routine Comment: Consulting Provider: Tunde Buckley Consulting Physician: Tunde Buckley Reason for Consult: distended gallbladder 05/09/18 15:52 Inpatient FAMILY NURSE Core Measures Referral Routine Comment: REFUSED Physician Instructions: Reason For Exam: EVALUATION Transition In Care/Readmission Reduction Routine Comment: REFUSED Physician Instructions: Reason For Exam: EVALUATION 05/10/18 09:18 Cardiology Consult Routine Comment: Consulting Provider: Delfin Stockton Consulting Physician: Delfin Stockton Reason for Consult: severe MR and severe mitral valve prolapse Hospital Course - Lab Results Lab Results: Micro Results 05/10/18 11:25 Blood-Venous Blood Culture - Preliminary NO GROWTH AFTER 3 DAYS Most Recent Lab Values WBC 6.6 10^3/uL (4.5-11.0) 05/13/18 09:30 RBC 5.05 10^6/uL (3.5-6.1) 05/13/18 09:30 Hgb 13.2 g/dL (14.0-18.0) L 05/13/18 09:30 Hct 40.7 % (42.0-52.0) L 05/13/18 09:30 MCV 80.6 fl (80.0-105.0) 05/13/18 09:30 MCH 26.1 pg (25.0-35.0) 05/13/18 09:30 MCHC 32.4 g/dl (31.0-37.0) 05/13/18 09:30 RDW 18.1 % (11.5-14.5) H 05/13/18 09:30 Plt Count 213 10^3/uL (120.0-450.0) 05/13/18 09:30 MPV 9.9 fl (7.0-11.0) 05/13/18 09:30 Neut % (Auto) 63.7 % (50.0-68.0) 05/12/18 08:10 Lymph % (Auto) 23.5 % (22.0-35.0) 05/12/18 08:10 Gooding % (Auto) 8.8 % (1.0-6.0) H 05/12/18 08:10 Eos % (Auto) 3.3 % (1.5-5.0) 05/12/18 08:10 Baso % (Auto) 0.7 % (0.0-3.0) 05/12/18 08:10 Lymph # (Auto) 1.7 (1.2-3.4) 05/12/18 08:10 Gooding # (Auto) 0.6 (0.1-0.6) 05/12/18 08:10 Eos # (Auto) 0.2 (0.0-0.7) 05/12/18 08:10 Baso # (Auto) 0.05 K/mm3 (0.0-2.0) 05/12/18 08:10 Absolute Neuts (auto) 4.65 (1.4-6.5) 05/12/18 08:10 ESR 5 mm/hr (0.00-15.0) 05/10/18 13:30 Retic Count 1.62 % (0.5-1.5) H 05/09/18 05:55 PT 12.0 SECONDS (9.4-12.5) 05/08/18 21:05 INR 1.08 05/08/18 21:05 APTT 30.1 Seconds (26.9-38.3) 05/08/18 21:05 Sodium 139 mmol/L (132-148) 05/13/18 09:10 Potassium 4.6 mmol/L (3.6-5.0) 05/13/18 09:10 Chloride 102 mmol/L (98-107) 05/13/18 09:10 Carbon Dioxide 30 mmol/L (21-33) 05/13/18 09:10 Anion Gap 12 (10-20) 05/13/18 09:10 BUN 22 mg/dL (7-21) H 05/13/18 09:10 Creatinine 1.0 mg/dl (0.8-1.5) 05/13/18 09:10 Est GFR ( Amer) > 60 05/13/18 09:10 Est GFR (Non-Af Amer) > 60 05/13/18 09:10 Random Glucose 131 mg/dL (70-110) H 05/13/18 09:10 Hemoglobin A1c 5.4 % (4.2-6.5) 05/08/18 21:05 Calcium 9.6 mg/dL (8.4-10.5) 05/13/18 09:10 Phosphorus 4.2 mg/dL (2.5-4.5) 05/12/18 08:10 Magnesium 2.4 mg/dL (1.7-2.2) H 05/12/18 08:10 Iron 83 ug/dL (45-180) 05/09/18 05:55 TIBC 414 ug/dL (261-462) 05/09/18 05:55 % Saturation 20 % (20-55) 05/09/18 05:55 Ferritin 16.6 ng/mL 05/09/18 05:55 Total Bilirubin 0.6 mg/dL (0.2-1.3) 05/13/18 09:10 AST 77 U/L (17-59) H D 05/13/18 09:10 ALT 50 U/L (7-56) 05/13/18 09:10 Alkaline Phosphatase 70 U/L (38-126) 05/13/18 09:10 Lactate Dehydrogenase 515 U/L (333-699) 05/09/18 11:10 Total Creatine Kinase 170 U/L (35-230) 05/09/18 11:10 Troponin I 0.03 ng/mL D 05/09/18 11:10 C-Reactive Protein 6.70 mg/L (0.0-9.9) 05/10/18 13:30 Total Protein 8.9 g/dL (5.8-8.3) H 05/13/18 09:10 Albumin 4.7 g/dL (3.0-4.8) 05/13/18 09:10 Globulin 4.2 gm/dL 05/13/18 09:10 Albumin/Globulin Ratio 1.1 (1.1-1.8) 05/13/18 09:10 Triglycerides 63 mg/dL (35-160) 05/09/18 05:55 Cholesterol 160 mg/dL (130-200) 05/09/18 05:55 LDL Cholesterol Direct 95 mg/dL (0-129) 05/09/18 05:55 HDL Cholesterol 49 mg/dL (29-60) 05/09/18 05:55 Lipase 240 U/L (23-300) 05/08/18 21:05 Procalcitonin < 0.05 NG/ML (0.19-0.49) L 05/10/18 13:30 TSH 3rd Generation 2.84 mIU/mL (0.46-4.68) 05/08/18 21:05 Digoxin < 0.4 ng/mL (0.8-2.0) L 05/09/18 05:55 Attending/Attestation - Attestation I have personally seen and examined this patient.: Yes I have fully participated in the care of the patient.: Yes I have reviewed all pertinent clinical information, including history, physical exam and plan: Yes Notes (Text): 05/13/18 15:28 62 year old male with past medical history of ?CHF who presented with epigastric pain, now resolved. He was noted to have pansystolic murmur and had echocardiogram which showed severe mitral regurgitation, cannot rule out vegetation. BCx was negative. ESR/CRP/Procalcitonin were negative. He was being following by cardiology. This afternoon he signed out against medical advice while awaiting cardiology recommendations. Explained at length risks of signing out AMA but still signed out against medical advice. Ketty Reid MD Hospitalist.
[2018-05-13 15:17] VITALS: PULSE 83
--- NOTE | 2018-05-13 19:31 | PN ---
DATE: 05/13/2018 CARDIOLOGY FOLLOWUP SUBJECTIVE: The patient is without complaints other than the fact that he wants to continue his care at [facility]. PHYSICAL EXAMINATION: VITAL SIGNS: Blood pressure varies from 120-160 systolic. NECK: Negative JVD. LUNGS: Without rales. HEART: Reveals a 3/6 systolic murmur at the apex. EXTREMITIES: Without edema. LABORATORY DATA: White count is 6.6. First blood culture is negative. Echocardiogram reveals severe mitral regurgitation with what looks like a prolapsed posterior leaflet. IMPRESSION: 1. Severe mitral regurgitation. 2. Rule out endocarditis. I had an extensive discussion with the patient about his condition. If he wants to continue his care at [facility], that would be acceptable if he is more comfortable there, however, if he does not, he will need a LUCAS, we will order an other set of blood cultures. It is likely the patient will need mitral valve surgery. Delfin Stockton MD
== END 2018-05-13 15:51 | disposition left against medical advice (07) | DRG 200 ==
LOC: ED 20:19 → ERH 05-09 01:56 → 5RNO 05-09 12:05 → OBSVTOIN 05-10 13:55 → 2RSO 05-10 14:41
PROVIDERS: ADMIT Internal Medicine; ATTEND Internal Medicine
DX: I34.0 Nonrheumatic mitral (valve) insufficiency (principal); I27.20 Pulmonary hypertension, unspecified; I50.9 Heart failure, unspecified; R10.13 Epigastric pain; E87.6 Hypokalemia; D64.9 Anemia, unspecified; Q21.1 Atrial septal defect